=== PATIENT | male | born 2000 ===

== ENCOUNTER 2019-06-04 17:26 | Emergency (ER) | payer OTHER ==
--- NOTE | 2019-06-04 17:40 | UC ---
Throat Pain/Nasal Vipul HPI - HPI Summary HPI Summary: 18-year-old male who has left earache and sore throat with mild fever starting last evening. - History of Current Complaint Stated Complaint: SORE THROAT/EAR PAIN Time Seen by Provider: 06/04/19 17:31 Hx Obtained From: Patient Onset/Duration: Gradual Onset Severity: Mild Cough: None Associated Signs & Symptoms: Positive: Fever - Allergies/Home Medications Allergies/Adverse Reactions: Allergies Allergy/AdvReac Type Severity Reaction Status Date / Time No Known Allergies Allergy Verified 06/04/19 17:43 Home Medications: Home Medications NK [No Home Medications Reported] 06/04/19 [History Confirmed 06/04/19] PMH/Surg Hx/FS Hx/Imm Hx Previously Healthy: Yes - Family History Known Family History: Positive: Non-Contributory - Social History Occupation: Student Lives: Dormitory/Roommates Review of Systems All Other Systems Reviewed And Are Negative: Yes Constitutional: Positive: Fever ENT: Positive: Sore Throat, Ear Ache - Left earache Is Patient Immunocompromised?: No Physical Exam Triage Information Reviewed: Yes Appearance: Well-Appearing, No Pain Distress, Well-Nourished Vital Signs Reviewed: Yes Eyes: Positive: Conjunctiva Clear ENT: Positive: Hearing grossly normal, Pharyngeal erythema, TMs normal, Uvula midline Neck: Positive: Supple, Nontender, No Lymphadenopathy Respiratory: Positive: Lungs clear, Normal breath sounds, No respiratory distress, No accessory muscle use Cardiovascular: Positive: RRR, No Murmur, Pulses Normal, Brisk Capillary Refill Abdomen Description: Positive: Nontender, No Organomegaly, Soft. Negative: CVA Tenderness (R), CVA Tenderness (L), Hepatomegaly, Splenomegaly Bowel Sounds: Positive: Present Musculoskeletal Exam: Normal Neurological Exam: Normal Psychological Exam: Normal Skin Exam: Normal Throat Pain/Nasal Course/Dx - Course Course Of Treatment: Rapid strep test: Negative The patient is discharged to continue throat lozenges, warm saltwater gargles, Tylenol every 4 hours as needed for pain or fever and Motrin every 8 hours. He is to follow-up at the [facility] if no improvement in 3 or 4 days. He requested a note for no classes tomorrow which was given to him. - Differential Dx/Diagnosis Provider Diagnosis: Pharyngitis Discharge ED - Sign-Out/Discharge Documenting (check all that apply): Patient Departure All imaging exams completed and their final reports reviewed: No Studies - Discharge Plan Condition: Good Disposition: HOME Patient Education Materials: Pharyngitis (ED) Forms: *School Release Referrals: [facility] [Outside] No Primary Care Phys,NOPCP [Primary Care Provider] - Additional Instructions: Increase fluids, Tylenol every 4 hours may alternate with Motrin every 8 hours for fever or pain. Follow-up with your primary care provider or [facility] in 3 or 4 days if no improvement. - Billing Disposition and Condition Condition: GOOD Disposition: Home
[2019-06-04 17:42] VITALS: BP 131/80
== END 2019-06-04 18:13 | disposition home or self-care (01) ==
LOC: UCCORT 17:26
DX: J02.9 Acute pharyngitis, unspecified (principal); R50.9 Fever, unspecified; H92.02 Otalgia, left ear
CPT/HCPCS: 87651; 99201; G0463